=== PATIENT | female | born 1935 | race Hispanic/Latino ===

== ENCOUNTER 2022-05-08 16:01 | Observation (INO) | payer MEDICAID, SELFPAY ==
[2022-05-08 17:01] LABS: #Eosinphils 0.1 thou/uL (0.0-0.7); #Lymphocytes 2.1 thou/uL (1.20-3.40); #Monocytes 0.6 thou/uL (0.11-0.59); %Basophils 0.5 % (0.0-1.0); %Eosinophils 1.1 % (0.0-10.0); %Lymphocytes 27.2 % (21.0-51.0); %Monocytes 7.8 % (0.0-10.0); %Neutrophils 63.4 % (42.0-75.0); Hemoglobin 13.3 g/dL (12.0-16.0); Mean Corpuscular HGB CONC 32.9 g/dL (32.0-36.0); Mean Corpuscular Hemoglobin 31.8 pg (27.0-31.0); Mean Corpuscular Volume 96.8 fL (78.0-98.0); Mean Platelet Volume 7.9 fL (7.4-10.4); Platelet Count 230 thou/uL (130-400); RBC Distribution Width 12.1 % (11.5-14.5); Red Blood Cell (RBC) Count 4.16 mill/uL (4.20-5.40); White Blood Cell (WBC) Count 7.9 thou/uL (4.8-10.8)
[2022-05-08 17:05] LABS: Bacteria/HPF None Seen HPF (None Seen); Bilirubin Negative (Negative); Blood, Urine Negative (Negative); Clarity Clear (Clear); Glucose, Urine (Dipstick) Greater than 1000 mg/dL (Negative); Ketone, Urine Negative (Negative); Leukocyte 75 Leu/uL (Negative); Nitrite Negative (Negative); Protein, Urine (Dipstick) Negative (Neg-Trace); RBC/HPF 0-3 HPF (0-3); Specific Gravity, Urine 1.009 (1.002-1.036); Urobilinogen Normal mg/dL (Less than 2); WBC/HPF 0-3 HPF (0-3)
[2022-05-08 17:21] LABS: Anion Gap 16 mmol/L (10-20); BUN (Urea Nitrogen) 14 mg/dL (9.8-20.1); Calc. Creatinine Clearance 0 mL/min (70-130); Carbon Dioxide 26 mmol/L (23-31); Chloride 93 mmol/L (98-107); Potassium 3.9 mmol/L (3.5-5.1); Sodium 131 mmol/L (136-145)
[2022-05-08 17:22] LABS: ALT (SGPT) 15 U/L (8-55); AST (SGOT) 16 U/L (5-34); Albumin 3.7 g/dL (3.4-4.8); Alkaline Phosphatase 121 U/L (40-110); Bilirubin, Total 0.5 mg/dL (0.2-1.2); Globulin 3.7 g/dL (2.4-3.5); Glucose 366 mg/dL (83-110); Protein, Total 7.4 g/dL (5.8-8.1)
[2022-05-08] MEDS ORDERED: Insulin Regular 300 UNITS/3 ML VIAL ONE (18:35)
[2022-05-08 20:32] LABS: Troponin I Less than 0.010 ng/mL (< 0.028)
[2022-05-08] MEDS ORDERED: Dextrose 5% in Water 1,000 ML IV PRN (20:36)
[2022-05-08] MEDS ORDERED: HumaLOG 300 UNITS/3 ML VIAL SC PRN ×2 (20:36)
[2022-05-08] MEDS ORDERED: Ondansetron PF 4 MG/2 ML Vial IVP PRN (20:36)
[2022-05-08] MEDS ORDERED: Acetaminophen 325 MG TAB PO PRN (20:36)
[2022-05-08] MEDS ORDERED: Dextrose 50% Abboject 50 ML SYRINGE SLOW IVP PRN (20:36)
[2022-05-08] MEDS ORDERED: hydrALAZINE 20 MG/ML VIAL SLOW IVP PRN (20:55)
[2022-05-08] MEDS ORDERED: metFORMIN 500 MG TAB PO SCH (21:00)
[2022-05-08 21:02] VITALS: BMI 21.7
[2022-05-08 23:36] LABS: Troponin I Less than 0.010 ng/mL (< 0.028)
[2022-05-09 05:15] LABS: #Eosinphils 0.1 thou/uL (0.0-0.7); #Lymphocytes 2.3 thou/uL (1.20-3.40); #Monocytes 0.6 thou/uL (0.11-0.59); #Neutrophils 3.3 thou/uL (1.40-6.50); %Basophils 0.2 % (0.0-1.0); %Eosinophils 1.4 % (0.0-10.0); %Lymphocytes 36.6 % (21.0-51.0); %Neutrophils 52.8 % (42.0-75.0); Hemoglobin 11.9 g/dL (12.0-16.0); Mean Corpuscular HGB CONC 33.7 g/dL (32.0-36.0); Mean Corpuscular Hemoglobin 32.4 pg (27.0-31.0); Mean Corpuscular Volume 96.3 fL (78.0-98.0); Mean Platelet Volume 7.8 fL (7.4-10.4); Platelet Count 189 thou/uL (130-400); Red Blood Cell (RBC) Count 3.68 mill/uL (4.20-5.40); White Blood Cell (WBC) Count 6.2 thou/uL (4.8-10.8)
[2022-05-09 05:41] LABS: ALT (SGPT) 11 U/L (8-55); AST (SGOT) 11 U/L (5-34); Albumin 3.1 g/dL (3.4-4.8); Alkaline Phosphatase 96 U/L (40-110); Anion Gap 11 mmol/L (10-20); BUN (Urea Nitrogen) 11 mg/dL (9.8-20.1); Bilirubin, Total 0.4 mg/dL (0.2-1.2); Calc. Creatinine Clearance 47 mL/min (70-130); Calcium 8.9 mg/dL (7.8-10.44); Carbon Dioxide 27 mmol/L (23-31); Chloride 101 mmol/L (98-107); Cholesterol 151 mg/dl (< 200 Desired); Globulin 3.1 g/dL (2.4-3.5); Glucose 291 mg/dL (83-110); HDL Cholesterol 38 mg/dL (>60 Neg Risk); LDL Cholesterol, Calculated 87 mg/dL; Potassium 3.8 mmol/L (3.5-5.1); Protein, Total 6.2 g/dL (5.8-8.1); Sodium 135 mmol/L (136-145); Triglycerides 129 mg/dL (Less than 150)
[2022-05-09] MEDS ORDERED: metFORMIN 500 MG TAB PO SCH (08:00)
[2022-05-09 08:42] LABS: Hemoglobin A1c 13.9 % (4.0-6.0)
[2022-05-09] MEDS ORDERED: Aspirin 81 mg Enteric Coated Tablet PO SCH (09:00)
[2022-05-09] MEDS ORDERED: Furosemide 20 MG TAB PO SCH (09:00)
[2022-05-09] MEDS ORDERED: Atorvastatin Calcium 20 MG TAB PO SCH (09:00)
[2022-05-09] MEDS ORDERED: Alogliptin 6.25 MG TAB PO SCH (09:00)
[2022-05-09] MEDS ORDERED: Sodium Chloride 0.9% 500 ML IV SCH (11:30)
[2022-05-09 12:10] VITALS: BP 96/55; TEMP 97.4
[2022-05-09] MEDS ORDERED: Rivaroxaban 15 MG TAB PO SCH (17:00)
== END 2022-05-09 15:40 | disposition home or self-care (01) ==
LOC: ERS 16:01 → 2SW 18:42
PROVIDERS: ADMIT Internal Medicine; ATTEND Internal Medicine
DX: R07.89 Other chest pain (principal); E11.65 Type 2 diabetes mellitus with hyperglycemia; I11.0 Hypertensive heart disease with heart failure; I50.9 Heart failure, unspecified; E78.5 Hyperlipidemia, unspecified; I48.91 Unspecified atrial fibrillation; E87.1 Hypo-osmolality and hyponatremia; I08.1 Rheumatic disorders of both mitral and tricuspid valves; Z79.84 Long term (current) use of oral hypoglycemic drugs; Z79.899 Other long term (current) drug therapy; Z91.11 Patient's noncompliance with dietary regimen; Z20.822 Contact with and (suspected) exposure to COVID-19
CPT/HCPCS: 36415; 36416; 71045; 80053; 80061; 81003; 81015; 83036; 83880; 84443; 84484; 85025; 93005; 93306; 96360; 96361; 96374; G0378; J1815; J7030; U0003; U0005

== ENCOUNTER 2022-05-27 05:48 | Emergency (ER) | payer MEDICAID, SELFPAY ==
[2022-05-27] MEDS ORDERED: Morphine 2 MG/ML VIAL ONE (06:25)
[2022-05-27 06:52] LABS: #Eosinphils 0.1 thou/uL (0.0-0.7); #Lymphocytes 2.2 thou/uL (1.20-3.40); #Monocytes 0.7 thou/uL (0.11-0.59); #Neutrophils 3.3 thou/uL (1.40-6.50); %Basophils 0.4 % (0.0-1.0); %Eosinophils 2.1 % (0.0-10.0); %Lymphocytes 34.8 % (21.0-51.0); %Monocytes 10.5 % (0.0-10.0); %Neutrophils 52.1 % (42.0-75.0); Hemoglobin 11.3 g/dL (12.0-16.0); Mean Corpuscular HGB CONC 33.6 g/dL (32.0-36.0); Mean Corpuscular Volume 95.1 fL (78.0-98.0); Mean Platelet Volume 7.6 fL (7.4-10.4); Platelet Count 199 thou/uL (130-400); RBC Distribution Width 11.9 % (11.5-14.5); Red Blood Cell (RBC) Count 3.54 mill/uL (4.20-5.40); White Blood Cell (WBC) Count 6.3 thou/uL (4.8-10.8)
[2022-05-27 07:17] LABS: ALT (SGPT) 12 U/L (8-55); AST (SGOT) 13 U/L (5-34); Albumin 3.5 g/dL (3.4-4.8); Alkaline Phosphatase 91 U/L (40-110); Anion Gap 14 mmol/L (10-20); BUN (Urea Nitrogen) 11 mg/dL (9.8-20.1); Bilirubin, Total 0.5 mg/dL (0.2-1.2); Calc. Creatinine Clearance 0 mL/min (70-130); Carbon Dioxide 26 mmol/L (23-31); Chloride 102 mmol/L (98-107); Globulin 2.8 g/dL (2.4-3.5); Glucose 194 mg/dL (83-110); Potassium 4.2 mmol/L (3.5-5.1); Protein, Total 6.3 g/dL (5.8-8.1); Sodium 138 mmol/L (136-145)
== END 2022-05-27 07:58 | disposition home or self-care (01) ==
LOC: ERS 05:48
DX: T14.8XXA Other injury of unspecified body region, initial encounter (principal); E78.5 Hyperlipidemia, unspecified; E11.9 Type 2 diabetes mellitus without complications; I50.9 Heart failure, unspecified; Z79.899 Other long term (current) drug therapy; Z79.84 Long term (current) use of oral hypoglycemic drugs; X58.XXXA Exposure to other specified factors, initial encounter
CPT/HCPCS: 36415; 71045; 80053; 84484; 85025; 93005; 96372; J2270

== ENCOUNTER 2022-05-28 10:10 | Emergency (ER) | payer SELFPAY ==
[2022-05-28] MEDS ORDERED: HYDROcodone/Acetaminophen 5/325 mg Tablet ONE (12:02)
== END 2022-05-28 12:26 | disposition home or self-care (01) ==
LOC: ERS 10:10
DX: M54.2 Cervicalgia (principal); E11.9 Type 2 diabetes mellitus without complications; I48.91 Unspecified atrial fibrillation; I50.9 Heart failure, unspecified; E78.5 Hyperlipidemia, unspecified
CPT/HCPCS: 99283

== ENCOUNTER 2022-06-08 04:18 | Inpatient (IN) | payer MEDICAID, SELFPAY ==
[2022-06-08] MEDS ORDERED: Metoprolol Tartrate 5 MG/5 ML VIAL ONE (05:08)
[2022-06-08 05:16] LABS: #Eosinphils 0.2 thou/uL (0.0-0.7); #Lymphocytes 2.2 thou/uL (1.20-3.40); #Monocytes 0.7 thou/uL (0.11-0.59); #Neutrophils 3.6 thou/uL (1.40-6.50); %Basophils 0.3 % (0.0-1.0); %Eosinophils 2.5 % (0.0-10.0); %Lymphocytes 33.3 % (21.0-51.0); %Monocytes 10.1 % (0.0-10.0); %Neutrophils 53.7 % (42.0-75.0); Hemoglobin 12.5 g/dL (12.0-16.0); Mean Corpuscular HGB CONC 33.1 g/dL (32.0-36.0); Mean Corpuscular Hemoglobin 31.5 pg (27.0-31.0); Platelet Count 242 thou/uL (130-400); RBC Distribution Width 12.2 % (11.5-14.5); Red Blood Cell (RBC) Count 3.96 mill/uL (4.20-5.40); White Blood Cell (WBC) Count 6.6 thou/uL (4.8-10.8)
[2022-06-08 05:56] LABS: ALT (SGPT) 16 U/L (8-55); AST (SGOT) 22 U/L (5-34); Alkaline Phosphatase 106 U/L (40-110); Anion Gap 15 mmol/L (10-20); BUN (Urea Nitrogen) 19 mg/dL (9.8-20.1); Bilirubin, Total 0.5 mg/dL (0.2-1.2); Calc. Creatinine Clearance 0 mL/min (70-130); Carbon Dioxide 28 mmol/L (23-31); Chloride 92 mmol/L (98-107); Estimated GFR 58; Globulin 3.9 g/dL (2.4-3.5); Glucose 141 mg/dL (83-110); Magnesium 1.8 mg/dL (1.6-2.6); Potassium 4.1 mmol/L (3.5-5.1); Protein, Total 7.9 g/dL (5.8-8.1); Sodium 131 mmol/L (136-145)
[2022-06-08] MEDS ORDERED: Furosemide 40 MG/4 ML VIAL ONE (06:51)
[2022-06-08] MEDS ORDERED: Nitroglycerin 2% Ointment 1 INCH/1 GM Packet ONE (06:51)
[2022-06-08 07:53] LABS: Bilirubin Negative (Negative); Blood, Urine Negative (Negative); Clarity Clear (Clear); Glucose, Urine (Dipstick) Normal (Negative); Ketone, Urine Negative (Negative); Leukocyte 75 Leu/uL (Negative); Nitrite Negative (Negative); Protein, Urine (Dipstick) Negative (Neg-Trace); RBC/HPF 0-3 HPF (0-3); Specific Gravity, Urine 1.007 (1.002-1.036); Squamous Epithelial 0-3 HPF (0-3); Urobilinogen Normal mg/dL (Less than 2); WBC/HPF 0-3 HPF (0-3); pH, Urine 6.5 (5.0-9.0)
[2022-06-08] MEDS ORDERED: Diltiazem HCl 125 MG in Premix Bag 1 BAG IVPB SCH ×3 (08:00→09:00)
[2022-06-08 08:01] LABS: Bacteria/HPF 1+ HPF (None Seen)
[2022-06-08 08:07] LABS: Troponin I Less than 0.010 ng/mL (< 0.028)
[2022-06-08] MEDS ORDERED: HumaLOG 300 UNITS/3 ML VIAL SC PRN (08:53)
[2022-06-08] MEDS ORDERED: Dextrose 5% in Water 1,000 ML IV PRN (08:53)
[2022-06-08] MEDS ORDERED: Dextrose 50% Abboject 50 ML SYRINGE SLOW IVP PRN (08:53)
[2022-06-08] MEDS ORDERED: Diltiazem HCl 0 ML ONE (09:11)
[2022-06-08] MEDS: Furosemide 40 MG/4 ML VIAL SLOW IVP SCH (09:41)
[2022-06-08] MEDS ORDERED: HumaLOG 300 UNITS/3 ML VIAL ONE (09:54)
[2022-06-08] MEDS: HumaLOG 300 UNITS/3 ML VIAL SC PRN (09:57)
[2022-06-08] MEDS: Apixaban 2.5 MG TAB PO SCH ×2 (10:35→20:13)
[2022-06-08 11:18] LABS: Troponin I Less than 0.010 ng/mL (< 0.028)
[2022-06-08] MEDS ORDERED: cefTRIAXone\\ROCEPHIN 1 GM VIAL ONE (13:08)
[2022-06-08] MEDS: cefTRIAXone\\ROCEPHIN 1 GM in Sodium Chloride 0.9% 100 ML IVPB SCH (13:15)
[2022-06-08] MEDS: Cyclobenzaprine 10 MG TAB PO PRN (20:12)
[2022-06-08] MEDS: Acetaminophen 325 MG TAB PO PRN (21:54)
[2022-06-09] MEDS: Cyclobenzaprine 10 MG TAB PO PRN ×3 (03:43→20:37)
[2022-06-09 05:01] LABS: #Eosinphils 0.1 thou/uL (0.0-0.7); #Lymphocytes 1.9 thou/uL (1.20-3.40); #Monocytes 0.8 thou/uL (0.11-0.59); #Neutrophils 3.2 thou/uL (1.40-6.50); %Basophils 0.7 % (0.0-1.0); %Eosinophils 1.8 % (0.0-10.0); %Lymphocytes 31.8 % (21.0-51.0); %Monocytes 13.1 % (0.0-10.0); %Neutrophils 52.5 % (42.0-75.0); Hemoglobin 12.4 g/dL (12.0-16.0); Mean Corpuscular HGB CONC 32.2 g/dL (32.0-36.0); Mean Corpuscular Hemoglobin 31.2 pg (27.0-31.0); Mean Corpuscular Volume 96.6 fL (78.0-98.0); Mean Platelet Volume 6.9 fL (7.4-10.4); Platelet Count 257 thou/uL (130-400); RBC Distribution Width 12.2 % (11.5-14.5); Red Blood Cell (RBC) Count 3.99 mill/uL (4.20-5.40); White Blood Cell (WBC) Count 6.1 thou/uL (4.8-10.8)
[2022-06-09 05:19] LABS: Anion Gap 13 mmol/L (10-20); BUN (Urea Nitrogen) 13 mg/dL (9.8-20.1); Calc. Creatinine Clearance 48 mL/min (70-130); Calcium 9.8 mg/dL (7.8-10.44); Carbon Dioxide 29 mmol/L (23-31); Chloride 101 mmol/L (98-107); Estimated GFR 86; Glucose 141 mg/dL (83-110); Potassium 4.1 mmol/L (3.5-5.1); Sodium 139 mmol/L (136-145)
[2022-06-09] MEDS: Acetaminophen 325 MG TAB PO PRN (07:27)
[2022-06-09] MEDS ORDERED: Metoprolol Tartrate 5 MG/5 ML VIAL IVP SCH (09:23)
[2022-06-09] MEDS: Furosemide 40 MG/4 ML VIAL SLOW IVP SCH (09:28)
[2022-06-09] MEDS: Apixaban 2.5 MG TAB PO SCH ×2 (09:28→20:37)
[2022-06-09] MEDS: Atorvastatin Calcium 20 MG TAB PO SCH (09:28)
[2022-06-09] MEDS ORDERED: diphenhydrAMINE 25 MG CAP PO PRN (09:59)
[2022-06-09] MEDS ORDERED: Loratadine 10 MG TAB PO PRN (09:59)
[2022-06-09] MEDS ORDERED: Ondansetron ODT 4 MG TAB PO PRN (09:59)
[2022-06-09] MEDS ORDERED: hydrALAZINE 20 MG/ML VIAL SLOW IVP PRN (09:59)
[2022-06-09] MEDS ORDERED: Cepastat Lozenges 1 LOZ PO PRN (09:59)
[2022-06-09] MEDS ORDERED: Sodium Chloride 0.65% Nasal 44 ML BOT EA NARE PRN (09:59)
[2022-06-09] MEDS ORDERED: GUAIFENESIN SF SOLN 200 MG/10 ML UDCUP PO PRN (09:59)
[2022-06-09] MEDS ORDERED: Artificial Tear Sol 15 ML BOT EA EYE PRN (09:59)
[2022-06-09] MEDS ORDERED: Moisturizing Cream (Eucerin) 113 GM JAR TOP PRN (09:59)
[2022-06-09] MEDS ORDERED: Labetalol HCl 100 MG/20 ML VIAL SLOW IVP PRN (09:59)
[2022-06-09] MEDS ORDERED: Benzonatate 100 MG CAP PO PRN (09:59)
[2022-06-09] MEDS ORDERED: Electrolyte Replacement Protocol 1 EACH FS SCH (10:00)
[2022-06-09] MEDS ORDERED: Magnesium 2 GM/50 ML(in water) 2 GM in Premix Bag 1 BAG IVPB SCH (12:00)
[2022-06-09] MEDS: HumaLOG 300 UNITS/3 ML VIAL SC PRN (12:19)
[2022-06-09] MEDS: cefTRIAXone\\ROCEPHIN 1 GM in Sodium Chloride 0.9% 100 ML IVPB SCH (12:19)
[2022-06-09] MEDS: Lidocaine 5% Patch TD SCH (12:19)
[2022-06-09] MEDS: Digoxin 0.25 MG TAB PO SCH ×2 (17:54→23:59)
[2022-06-09] MEDS: metFORMIN 500 MG TAB PO SCH (17:54)
[2022-06-09] MEDS: Transdermal Patch Removal TOP SCH (20:46)
[2022-06-10 04:49] LABS: #Basophils 0.1 thou/uL (0.0-0.2); #Eosinphils 0.1 thou/uL (0.0-0.7); #Lymphocytes 1.9 thou/uL (1.20-3.40); #Monocytes 0.8 thou/uL (0.11-0.59); #Neutrophils 3.6 thou/uL (1.40-6.50); %Basophils 0.9 % (0.0-1.0); %Eosinophils 1.8 % (0.0-10.0); %Lymphocytes 29.2 % (21.0-51.0); %Monocytes 12.1 % (0.0-10.0); Hemoglobin 13.5 g/dL (12.0-16.0); Mean Corpuscular HGB CONC 32.7 g/dL (32.0-36.0); Mean Corpuscular Hemoglobin 31.3 pg (27.0-31.0); Mean Corpuscular Volume 95.7 fL (78.0-98.0); Mean Platelet Volume 6.8 fL (7.4-10.4); Platelet Count 281 thou/uL (130-400); RBC Distribution Width 12.3 % (11.5-14.5); Red Blood Cell (RBC) Count 4.31 mill/uL (4.20-5.40); White Blood Cell (WBC) Count 6.5 thou/uL (4.8-10.8)
[2022-06-10 05:08] LABS: Anion Gap 14 mmol/L (10-20); BUN (Urea Nitrogen) 16 mg/dL (9.8-20.1); Calc. Creatinine Clearance 48 mL/min (70-130); Calcium 9.6 mg/dL (7.8-10.44); Carbon Dioxide 29 mmol/L (23-31); Chloride 100 mmol/L (98-107); Estimated GFR 85; Glucose 147 mg/dL (83-110); Potassium 4.1 mmol/L (3.5-5.1); Sodium 139 mmol/L (136-145)
[2022-06-10] MEDS: Furosemide 40 MG/4 ML VIAL SLOW IVP SCH (08:25)
[2022-06-10] MEDS: Atorvastatin Calcium 20 MG TAB PO SCH (08:25)
[2022-06-10] MEDS: metFORMIN 500 MG TAB PO SCH ×2 (08:26→16:05)
[2022-06-10] MEDS: Lidocaine 5% Patch TD SCH (08:26)
[2022-06-10] MEDS: Apixaban 2.5 MG TAB PO SCH ×2 (08:26→22:03)
[2022-06-10] MEDS: cefTRIAXone\\ROCEPHIN 1 GM in Sodium Chloride 0.9% 100 ML IVPB SCH (11:56)
[2022-06-10] MEDS: HumaLOG 300 UNITS/3 ML VIAL SC PRN (11:56)
[2022-06-10] MEDS: Acetaminophen 325 MG TAB PO PRN (16:05)
[2022-06-10] MEDS ORDERED: Digoxin 0.125 MG TAB PO SCH (17:00)
[2022-06-10] MEDS: Transdermal Patch Removal TOP SCH (22:04)
[2022-06-11] MEDS: Acetaminophen 325 MG TAB PO PRN ×3 (00:18→13:43)
[2022-06-11 04:53] LABS: #Eosinphils 0.1 thou/uL (0.0-0.7); #Lymphocytes 2.1 thou/uL (1.20-3.40); #Monocytes 0.8 thou/uL (0.11-0.59); #Neutrophils 4.2 thou/uL (1.40-6.50); %Basophils 0.4 % (0.0-1.0); %Eosinophils 1.7 % (0.0-10.0); %Lymphocytes 29.1 % (21.0-51.0); %Monocytes 11.5 % (0.0-10.0); %Neutrophils 57.2 % (42.0-75.0); Hemoglobin 12.7 g/dL (12.0-16.0); Mean Corpuscular HGB CONC 32.8 g/dL (32.0-36.0); Mean Corpuscular Hemoglobin 31.2 pg (27.0-31.0); Mean Corpuscular Volume 95.2 fL (78.0-98.0); Mean Platelet Volume 6.8 fL (7.4-10.4); Platelet Count 273 thou/uL (130-400); RBC Distribution Width 12.1 % (11.5-14.5); Red Blood Cell (RBC) Count 4.07 mill/uL (4.20-5.40); White Blood Cell (WBC) Count 7.3 thou/uL (4.8-10.8)
[2022-06-11 05:10] LABS: Anion Gap 14 mmol/L (10-20); BUN (Urea Nitrogen) 14 mg/dL (9.8-20.1); Calc. Creatinine Clearance 51 mL/min (70-130); Calcium 9.4 mg/dL (7.8-10.44); Carbon Dioxide 27 mmol/L (23-31); Chloride 99 mmol/L (98-107); Estimated GFR 87; Glucose 123 mg/dL (83-110); Potassium 3.9 mmol/L (3.5-5.1); Sodium 136 mmol/L (136-145)
[2022-06-11 08:14] VITALS: TEMP 97.3
[2022-06-11] MEDS ORDERED: Losartan 25 MG TAB PO SCH (09:00)
[2022-06-11] MEDS ORDERED: Digoxin 0.125 MG TAB PO SCH (09:00)
[2022-06-11] MEDS: Furosemide 40 MG/4 ML VIAL SLOW IVP SCH (09:38)
[2022-06-11] MEDS: Lidocaine 5% Patch TD SCH (09:38)
[2022-06-11] MEDS: Atorvastatin Calcium 20 MG TAB PO SCH (09:39)
[2022-06-11] MEDS: Apixaban 2.5 MG TAB PO SCH (09:39)
[2022-06-11] MEDS: metFORMIN 500 MG TAB PO SCH (09:39)
[2022-06-11 12:03] VITALS: BP 143/80
[2022-06-11] MEDS: HumaLOG 300 UNITS/3 ML VIAL SC PRN (12:42)
[2022-06-11] MEDS: cefTRIAXone\\ROCEPHIN 1 GM in Sodium Chloride 0.9% 100 ML IVPB SCH ×2 (13:35→13:46)
== END 2022-06-11 15:30 | disposition home or self-care (01) | DRG 291 ==
LOC: ERS 04:18 → ERHOLD 07:16 → 2SW 14:28 → OBSVTOIN 06-09 09:23
PROVIDERS: ADMIT Internal Medicine; ATTEND Internal Medicine
DX: I11.0 Hypertensive heart disease with heart failure (principal); I50.23 Acute on chronic systolic (congestive) heart failure; I48.19 Other persistent atrial fibrillation; N39.0 Urinary tract infection, site not specified; E87.1 Hypo-osmolality and hyponatremia; Z20.822 Contact with and (suspected) exposure to COVID-19; I48.91 Unspecified atrial fibrillation; E11.9 Type 2 diabetes mellitus without complications; I95.9 Hypotension, unspecified; I42.9 Cardiomyopathy, unspecified; E78.5 Hyperlipidemia, unspecified; Z79.01 Long term (current) use of anticoagulants; Z79.899 Other long term (current) drug therapy; Z79.84 Long term (current) use of oral hypoglycemic drugs; Z90.710 Acquired absence of both cervix and uterus
CPT/HCPCS: 36415; 36416; 71045; 80048; 80053; 81003; 81015; 83735; 83880; 84100; 84443; 84484; 85025; 87086; 93005; 96366; 96376; G0378; J0696; J1815; J1940; J3475; J3490; U0003; U0005